=== PATIENT | female | born 1945 | race Caucasian/White ===

== ENCOUNTER → 2017-09-23 | Outpatient (CLI) | payer OTHER ==
[~2017-09-23] MED LIST: ASPI81TA17 PO; ASPI81TA23 PO; CYMB60CA PO; ESTR1TAB PO; GLUCTAB PO; KLOR10TA PO; LEVO.125 PO; MAXZ25 PO; MAXZTAB PO; POTA-267 PO; POTA10IN2 PO; PREV30CA36 PO; TRIA1CAP6 PO; TRIA50 PO; VITA2000 PO; VITA200017 PO; VITA500T10 PO; VITA500T83 PO
[2017-09-23 14:22] LABS: HEMATOCRIT 37.3 % (35.0-46.0); MEAN CELL VOLUME 83.8 FL (80.0-100.0); MEAN CORPUSCULAR HEMOGLOBIN 27.8 PG (27.0-34.0); MEAN CORPUSCULAR HGB CONC 33.1 % (32.0-36.0); PLATELET COUNT 258 TH/MM3 (150-450); RED BLOOD COUNT 4.45 MIL/MM3 (4.00-5.30); WHITE BLOOD COUNT 9.5 TH/MM3 (4.0-11.0)
[2017-09-23 14:35] LABS: REVIEW FLAG FINAL
[2017-09-23 14:36] LABS: POTASSIUM 3.9 MEQ/L (3.5-5.1)
[2017-09-23 14:39] LABS: BICARBONATE 24.3 MEQ/L (21.0-32.0)
== END ==
LOC: PHPRE 13:10
PROVIDERS: ATTEND Obstetrics & Gynecology
DX: Z01.812 Encounter for preprocedural laboratory examination (principal); N81.6 Rectocele; R10.2 Pelvic and perineal pain; N18.3 Chronic kidney disease, stage 3 (moderate)
CPT/HCPCS: 36415; 80048; 85027; 86850; 86900; 86901; 86920

== ENCOUNTER 2017-09-25 06:30 | Observation (INO) | payer OTHER ==
[~2017-09-25] VITALS: Ht 160 cm; Wt 71.4 kg
[~2017-09-25 06:30] MED LIST changes: -ASPI81TA17 PO; -MAXZ25 PO; -MAXZTAB PO; -POTA-267 PO; -POTA10IN2 PO; -TRIA50 PO; -VITA200017 PO; -VITA500T10 PO
[2017-09-25] MEDS ORDERED: metroNIDAZOLE 500 MG INJ 100 ML IV SCH (07:00)
[2017-09-25] MEDS ORDERED: CLINDAMYCIN INJ 600 MG in SODIUM CHLORIDE 0.9% INJ 46 ML IV SCH (07:00)
[2017-09-25] MEDS ORDERED: POVIDONE IODINE 5% (ANTISEPSIS KIT) 4 APPLICATIONS EACH NARE PRN (07:15)
[2017-09-25] MEDS ORDERED: CHLORHEXIDINE GLUCONATE 2 % 1 PACK (2 CLOTHS) TOPICAL PRN (07:15)
[2017-09-25] MEDS ORDERED: SODIUM CHLORID 0.9% 500 ML IV PRN (07:15)
[2017-09-25] MEDS ORDERED: INSULIN HUMAN REGULAR 1,000 UNITS/10 ML VIAL SQ PRN (07:15)
[2017-09-25] MEDS ORDERED: METOPROLOL TARTRATE 25 MG TAB PO PRN (07:15)
[2017-09-25] MEDS: SODIUM CHLORIDE 0.9% 20 ML VIAL ONE ×4 (07:18→09:28)
[2017-09-25] MEDS ORDERED: VASOPRESSIN 20 UNITS/ML VIAL (IVTITR) ONE (07:19)
[2017-09-25] MEDS: LACTATED RINGER'S 1000 ML IV PRN (08:35)
[2017-09-25] MEDS ORDERED: ESTROGENS CONJUGATED VAG CREA 15 APPL/30 GM TUBE ONE (09:59)
[2017-09-25] MEDS ORDERED: fentaNYL CITRATE 250 MCG/5 ML AMP ONE (10:32)
--- NOTE | 2017-09-25 11:56 | PD.OP ---
Operative Report Date of Surgery: Sep 25, 2017 Preoperative Diagnosis: (1) Rectocele Postoperative Diagnosis: (1) Rectocele Procedure: Rectocele repair with mesh graft Anesthesia: Dr. Burton/Yoselin general Surgeon: Yessy Chopra Federal Appellate Clerk(s): Lonny Resident Surgeon: n/a Operation and Findings: Indications: Patient has a protruding rectocele which she would like repaired. She had a vaginal sacrocolpopexy in 2013 and a rectocele repair with allograft at that time. She felt the rectocele prolapse recently even though the sacrocolpopexy sutures are intact. Procedure: After induction of general anesthesia, the patient was positioned in low stirrups and prepped with placement of a Barrios catheter. An episiotomy was cut for visualization. Dilute vasopressin was injected submucosally for hemostasis and to develop planes. However, a transient rise in B/P caused me to not use vasopressin further during the case. Starting at the fourchette, the mucosa was from the underlying tissues with a centerline incision from the fourchette to the cuff. With meticulous dissection the plane was carried to the lateral vaginal sulci bilaterally. The mesh was placed and cut to fit the defect. It was anchored in the middle at the cuff, then along the left sulcus in interrupted sutures. Checking to see if the mesh laid flat, it was then anchored at the right sulcus and at the fourchette. Redundant tissue was excised and discarded, followed by closure of the mucosa in the midline with a running, locked suture. At the perineum, the bodies of the transverse perinei and bulbocavernosi muscles were dissected enough to reapproximate these structures, thus recreating the perineal body. The midline suture was continued subcuticularly to the apex of the incision on the perineum. Careful rectal exam showed the rectum to be intact with no sutures into the rectal vault. Gauze packing lubricated with Premarin vaginal cream was used before returning the patient to a supine position. She was then awakened and transferred to the recovery room. Sponge, needle and instrument counts were correct. Yessy Chopra MD Sep 25, 2017 11:56
[2017-09-25] MEDS ORDERED: MORPHINE SULFATE 8 MG/ML INJ ONE (12:20)
[2017-09-25] MEDS ORDERED: HYDROmorphone HCL PF 1 MG/ML VIAL ONE (12:25)
[2017-09-25] MEDS ORDERED: ONDANSETRON HCL 4 MG/2 ML VIAL IV PUSH PRN (12:30)
[2017-09-25 14:30] VITALS: BP 107/51; PULSE 80; RESP 18; TEMP 95.7; O2SAT 96
[2017-09-25] MEDS: oxyCODONE/ACETAMINOPHEN 5 MG/325 MG TAB PO PRN ×2 (15:08→19:52)
[2017-09-25 16:00] VITALS: BP 130/52; PULSE 86; RESP 18; TEMP 96; O2SAT 97
[2017-09-25 16:19] VITALS: O2SAT 97
[2017-09-25 20:00] VITALS: BP 121/59; PULSE 79; RESP 20; TEMP 98.4; O2SAT 100
[2017-09-25 20:05] VITALS: O2SAT 99
[2017-09-25] MEDS ORDERED: PANTOPRAZOLE SOD 40 MG DELAYED RELEASE TAB PO SCH (21:00)
[2017-09-25] MEDS ORDERED: DULoxetine HCl DR 60 MG CAP PO SCH (21:00)
[2017-09-26] VITALS: BP 126/58; PULSE 83; RESP 18; TEMP 98.9; O2SAT 100
[2017-09-26] MEDS: oxyCODONE/ACETAMINOPHEN 5 MG/325 MG TAB PO PRN ×3 (03:16→17:14)
[2017-09-26] MEDS: LACTATED RINGER'S 1000 ML IV PRN (03:19)
[2017-09-26 07:00] VITALS: BP 149/73; PULSE 78; RESP 12; TEMP 98.7; O2SAT 99
[2017-09-26 08:00] VITALS: O2SAT 96
[2017-09-26] MEDS ORDERED: FENOFIBRATE 145 MG TAB PO SCH (09:00)
[2017-09-26] MEDS ORDERED: POTASSIUM CHLORIDE 10 MEQ CONTROLLED RELEASE TAB PO SCH (09:00)
[2017-09-26 12:00] VITALS: BP 141/65; PULSE 79; RESP 12; TEMP 98.2; O2SAT 96
[2017-09-26 16:00] VITALS: BP 142/73; PULSE 73; RESP 14; TEMP 98.8; O2SAT 98
--- NOTE | 2017-09-26 17:00 | HHI.DS ---
Discharge Summary Admission Date Sep 25, 2017 at 13:29 Discharge Date: Sep 26, 2017 Admitting Diagnosis (1) Rectocele Diagnosis: Principal ICD Codes: N81.6 - Rectocele Procedures Posterior colporrhaphy with mesh graft Brief History Patient with pelvic organ prolapse had surgery in 2013. Recently felt a recurrence of rectocele protruding and requested repair with mesh. PE at Discharge Patient ambulatory, voiding and tolerating regular diet. Patient was more uncomfortable than typical for removal of packing, but packing had no fresh blood. Hospital Course Patient had a routine recovery overnight except for some low urine output that resolved with bolus. Pt Condition on Discharge: Good Discharge Disposition: Discharge Home Discharge Instructions DIET: Follow Instructions for: As Tolerated, No Restrictions, Diabetic Diet Activities you can perform: Non Weight Bearing, Shower Only-No Bath, Pelvic Rest Activities to avoid: Strenuous Activity Additional Information Patient has post-op meds at home already. She has a follow up appointment scheduled for next week. Yessy Chopra MD Sep 26, 2017 16:59
== END 2017-09-26 19:07 | disposition home or self-care (01) ==
LOC: PHSDC 06:30 → PH3A 13:29
PROVIDERS: ADMIT Obstetrics & Gynecology; ATTEND Obstetrics & Gynecology
DX: N81.6 Rectocele (principal); I25.10 Atherosclerotic heart disease of native coronary artery without angina pectoris; E11.22 Type 2 diabetes mellitus with diabetic chronic kidney disease; N18.3 Chronic kidney disease, stage 3 (moderate); E03.9 Hypothyroidism, unspecified; K21.9 Gastro-esophageal reflux disease without esophagitis
CPT/HCPCS: G0378; J1170; J2270; J3010; J7120

== ENCOUNTER → 2018-01-30 | Outpatient (CLI) | payer MEDICARE ==
--- NOTE | 2018-01-30 15:11 | RADRPT ---
EXAM DATE/TIME: 01/30/2018 14:57 [facility] COMPARISON: No previous studies available for comparison. INDICATIONS : Cough. MEDICAL HISTORY : None. SURGICAL HISTORY : None. ENCOUNTER: Initial ACUITY: 2 months PAIN SCORE: 0/10 LOCATION: Bilateral Chest FINDINGS: Bibasilar atelectasis and/or developing infiltrates are noted. The pulmonary vascular pattern is norm al. The heart is normal. Degenerative changes are noted throughout the thoracic spine. CONCLUSION: Bibasilar atelectasis and/or developing infiltrates. Diaz Amador MD on January 30, 2018 at 15:08 Board Certified Radiologist. This report was verified electronically.
== END ==
LOC: HRAD 14:36
PROVIDERS: ATTEND Family Medicine
DX: J06.9 Acute upper respiratory infection, unspecified (principal)
CPT/HCPCS: 71046